=== PATIENT | male | born 1975 | race Caucasian/White ===

== ENCOUNTER 2022-07-03 01:17 | Emergency (ER) | payer OTHER ==
[2022-07-03] MEDS: HYDROmorphone 1 MG/ML Syringe SUBCUT ONE (01:42)
[2022-07-03] MEDS: LORazepam 0.5 MG Tab PO ONE (01:43)
[2022-07-03] MEDS: Take Home: Acetaminophen/HYDROcodone 325-5 MG, 2 Tab Pack PO ONE (01:49)
== END 2022-07-03 02:00 | disposition home or self-care (01) ==
LOC: CC.ED 01:17
DX: M54.50 Low back pain, unspecified (principal)
CPT/HCPCS: 96372; 99283; A9270; J1170